=== PATIENT | female | born 1980 | race Caucasian/White ===

== ENCOUNTER 2017-01-13 03:56 | Inpatient (IN) ==
[2017-01-13] MEDS ORDERED: Ondansetron 4 MG/2 ML VIAL IVP PRN (04:27)
[2017-01-13] MEDS ORDERED: Famotidine 20 MG/2 ML VIAL IVP PRN (04:27)
[2017-01-13] MEDS ORDERED: Metoclopramide 10 MG/2 ML VIAL IVP PRN (04:27)
[2017-01-13] MEDS ORDERED: Naloxone 0.4 MG/ML INJ IVP PRN (04:27)
[2017-01-13] MEDS ORDERED: Penicillin G Potassium 5,000,000 UNIT in D5% in Water (Mini-Bag+) 100 ML IVPB ONE (04:30)
[2017-01-13] MEDS ORDERED: *HR* Nalbuphine 20 MG/ML AMPUL IVP PRN (04:31)
[2017-01-13] MEDS ORDERED: Ringers Solution, Lactated 1,000 ML ONE (04:35)
[2017-01-13 04:36] LABS: Basophils % 0.3 %; Eosinophils # 0.2 K/mcL (0.0-0.6); Eosinophils % 1.3 %; Hematocrit 37.1 % (35.3-44.9); Hemoglobin 12.4 g/dL (11.5-15.4); Immature Granulocytes % 0.8 % (0-4); Lymphocytes # 3.3 K/mcL (0.6-4.6); Lymphocytes % 25.2 %; Mean Corpuscular HGB Conc 33.4 g/dL (31.6-35.5); Mean Corpuscular Hemoglobin 29.6 pg (28.0-33.3); Mean Corpuscular Volume 88.5 fL (83.0-100.0); Mean Platelet Volume 11.6 fL (9.4-12.4); Monocytes # 0.9 K/mcL (0.0-1.3); Monocytes % 7.1 %; Neutrophils # 8.6 K/mcL (1.6-8.9); Platelet Count 253 K/mcL (140-400); Red Blood Count 4.19 M/mcL (3.82-4.97); Red Cell Distribution Width 13.7 % (11.5-14.5); Segmented Neutrophils % 65.3 %
[2017-01-13 04:45] LABS: Amphetamine Screen,Urine Negative ng/mL (Cutoff=1000); Barbiturate Screen,Urine Negative ng/mL (Cutoff=200); Benzodiazepines Screen,Urine Negative ng/mL (Cutoff=200); Cannabinoid Screen,Urine Negative ng/mL (Cutoff = 50); Cocaine Screen,Urine Negative ng/mL (Cutoff= 300); Opiate Screen,Urine Negative ng/mL (Cutoff=300); Phencyclidine Screen,Urine Negative ng/mL (Cutoff=25)
[2017-01-13] MEDS ORDERED: Oxytocin 20 units/ LR 1000 mL 20 UNIT/1,000 ML BAG IVC SCH ×2 (04:45→15:45)
[2017-01-13] MEDS: Ringers Solution, Lactated 1,000 ML IVC SCH ×2 (04:49→10:56)
[2017-01-13] MEDS ORDERED: miSOPROStol 25 MCG TABLET VG SCH (05:00)
[2017-01-13] MEDS: Penicillin G Potassium 2,500,000 UNIT in D5% in Water 100 ML IVPB SCH ×2 (09:13→13:03)
--- NOTE | 2017-01-13 10:19 | OB/GYN History & Physical ---
Date of Encounter: 01/13/17 Time of Encounter: 10:18 Assessment and Plan (1) Elective induction of labor planned Current visit: Yes Status: Acute PCN for GBS ppx started, cytotec 25mcg given for cervical ripening, if favorable after 1st or 2nd dose, will start pitocin, aniticipate FHT CAT 1 History of Present Illness HPI: Ms. Coley is a 36 year old female @ 39+ weeks who presented to L&D for IOL, she does not report LOF, VB or ctxs, she is GBS + Past Med Surg Social Fam HX - Past Medical History Medical history: asthma, hepatitis Psychiatric history: no psych history - Past Surgical History Surgical History: other - Social History Smoking Status: Current every day smoker Packs per day: <1/4 Smokeless Tobacco Status: No Alcohol use: none Drug use: none - Family History Mother Adopted: No Living Status: Still Living Hx Family Cardiac Disorders: No Hx Family Respiratory Disorders: No Hx Family Cancer: No Hx Family GI Disorders: No Hx Family Genitourinary Disorders: No Hx Family Endocrine Disorder: Yes (dm) Hx Family Musculoskeletal Disorders: No Hx Family Neuromuscular Disorders: No Hx Family Neurologic Disorders: No Hx Family HEENT Disorders: No Hx Family Autoimmune Disorders: No Hx Family Reproductive Disorders: No Hx Family Psychosocial Disorders: No Hx Family Medical Disorders: No Obstetrical History - Pregnancies : 4 Para: 2 Term: 2 : 0 Ab's: 1 Livin Medications and Allergies Famotidine [Pepcid] 20 mg PO DAILY 01/13/17 [History] Vit/Iron Fumarate/FA [ Tablet] 1 tab PO DAILY 01/13/17 [History ] 3 Allergy/AdvReac Type Severity Reaction Status Date / Time pseudoephedrine Allergy Hypertensio Verified 05/30/16 19:18 [From Sudafed] n Exam - Constitutional Constitutional: well developed - HEENT HEENT: PERRL - Neck Neck exam: full ROM - Lungs Respiratory exam: CTAB - Cardiovascular Cardiovascular exam: RRR - Abdomen Abdomen: Present: gravid - Cervix Dilation: 1 Effacement: 60 Results Result Diagrams: 01/13/17 04:25 Abnormal lab results WBC 13.2 K/mcL (4.3-11.1) H 01/13/17 04:25 All other labs normal.
--- NOTE | 2017-01-13 13:50 | OB Labor Progress Note ---
Date of Encounter: 01/13/17 Time of Encounter: 13:47 Labor Progress Note - Subjective Subjective: patient doing well - Vital Signs Vital Signs: VSS - Cervix Cervix: 2cm/75 - Heart Tones Heart Tones: FHT CAT 1 - Plan Plan: ok for epidural, pitocin @ 1, keep increasing, anticipate
[2017-01-13] MEDS ORDERED: *HR* FentaNYL (PF) 100 MCG/2 ML VIAL ONE (15:16)
[2017-01-13] MEDS ORDERED: Bupivacaine-MPF 0.25% 10 ML VIAL ONE ×2 (15:16→15:18)
[2017-01-13] MEDS ORDERED: Epidural Premix (fent/bupiv) 0 ML EP ONE (15:17)
--- NOTE | 2017-01-13 15:33 | OB/GYN Procedure Note ---
Delivery - Delivery Date: 01/13/17 Provider: Kayley Mai Intrapartum events: none Delivery induction: oxytocin, misoprostol Delivery monitor: external FHT Anesthesia: none Estimated Blood Loss: 100 - Repair Episiotomy: none Laceration Description: Periurethral - Complications Delivery complications: none - Disposition Mom disposition: stable in LDR [place] disposition: stable in LDR - Comments Comments: 36 y/o now delivered a viable male @ 1512 hrs, weighing 3125g ( 6lbs 14oz), APGARs 9/9. Infant was delivered JESUS with a loose nuchal cord x 1. Placenta was delivered @ 1517hrs, EBL 100cc, right hemostatic periurethral laceration noted. Mother and infant doing very well.
[2017-01-13] MEDS ORDERED: Measles/Mumps/Rubella Vacc 0.5 ML VIAL SQ PRN (15:34)
[2017-01-13] MEDS: Ibuprofen 600 MG TABLET PO PRN (16:55)
[2017-01-14] MEDS: Ibuprofen 600 MG TABLET PO PRN (03:51)
[2017-01-14 05:00] LABS: Basophils % 0.2 %; Eosinophils # 0.2 K/mcL (0.0-0.6); Eosinophils % 1.1 %; Hematocrit 35.9 % (35.3-44.9); Hemoglobin 11.9 g/dL (11.5-15.4); Immature Granulocytes % 0.5 % (0-4); Lymphocytes # 3.2 K/mcL (0.6-4.6); Lymphocytes % 21.1 %; Mean Corpuscular HGB Conc 33.1 g/dL (31.6-35.5); Mean Corpuscular Hemoglobin 29.4 pg (28.0-33.3); Mean Corpuscular Volume 88.6 fL (83.0-100.0); Mean Platelet Volume 11.8 fL (9.4-12.4); Monocytes # 0.9 K/mcL (0.0-1.3); Monocytes % 5.9 %; Neutrophils # 10.7 K/mcL (1.6-8.9); Platelet Count 249 K/mcL (140-400); Red Blood Count 4.05 M/mcL (3.82-4.97); Red Cell Distribution Width 13.7 % (11.5-14.5); Segmented Neutrophils % 71.2 %
[2017-01-14 08:10] VITALS: BP 106/63
[2017-01-14] MEDS ORDERED: Prenatal Vit/FA 1 EACH TABLET PO SCH (09:00)
--- NOTE | 2017-01-14 09:22 | Discharge Summary ---
Date of Encounter: 01/14/17 Time of Encounter: 09:19 - Discharge Diagnosis (1) Status post vaginal delivery Priority: Primary Status: Acute Comments: Routine PP care - Discharge Medications Prescriptions: Ibuprofen [Motrin] 600 mg PO Q6HR PRN #30 tablet PRN Reason: Cramping Home Medications: Famotidine [Pepcid] 20 mg PO DAILY 01/13/17 [History] Vit/Iron Fumarate/FA [ Tablet] 1 tab PO DAILY 01/13/17 [History ] Ibuprofen [Motrin] 600 mg PO Q6HR PRN #30 tablet 01/14/17 [Rx] Allergies/Adverse Reactions: 3 Allergy/AdvReac Type Severity Reaction Status Date / Time pseudoephedrine Allergy Hypertensio Verified 05/30/16 19:18 [From Jadyn] n Data Procedures and tests throughout hospitalization: Laboratory Tests 01/13/17 01/13/17 01/14/17 04:25 04:25 04:39 WBC 13.2 H 15.0 H RBC 4.19 4.05 Hgb 12.4 11.9 Hct 37.1 35.9 MCV 88.5 88.6 MCH 29.6 29.4 MCHC 33.4 33.1 RDW 13.7 13.7 Plt Count 253 249 MPV 11.6 11.8 Immature Gran % 0.8 0.5 Seg Neutrophils % 65.3 71.2 Lymphocytes % 25.2 21.1 Monocytes % 7.1 5.9 Eosinophils % 1.3 1.1 Basophils % 0.3 0.2 Neutrophils # 8.6 10.7 H Lymphocytes # 3.3 3.2 Monocytes # 0.9 0.9 Eosinophils # 0.2 0.2 Basophils # 0.0 0.0 Urine Opiates Screen Negative Ur Barbiturates Screen Negative Ur Phencyclidine Scrn Negative Ur Amphetamines Screen Negative U Benzodiazepines Scrn Negative Urine Cocaine Screen Negative U Marijuana (THC) Screen Negative Labs on day of discharge: Labs from last 24 hours 01/14/17 04:39 WBC 15.0 H RBC 4.05 Hgb 11.9 Hct 35.9 MCV 88.6 MCH 29.4 MCHC 33.1 RDW 13.7 Plt Count 249 MPV 11.8 Immature Gran % 0.5 Seg Neutrophils % 71.2 Lymphocytes % 21.1 Monocytes % 5.9 Eosinophils % 1.1 Basophils % 0.2 Neutrophils # 10.7 H Lymphocytes # 3.2 Monocytes # 0.9 Eosinophils # 0.2 Basophils # 0.0 Date of admission: 01/13/17 03:56 Primary care physician: PCP NONE Consults: 01/13/17 04:29 Consult to Environmental Compliance Manager (W&C) [CONS] Routine Reason For Exam: Reason for SW Consult: patient does not have custody of other children and has history of IV drug abuse. Discharging clinician: Yuliana Bautista Anticipated date of discharge: 01/14/17 - Patient Status Disposition: Home, Self-Care Condition: Good Functional capacity at discharge: independent ambulation Overall status at discharge: patient is progressing back to baseline - Discharge Instructions Follow Up With: Kayley Mai MD [Partnered Physician] - - Diet and Activity Activity: increase activity as tolerated Diet: advance to your usual diet Hospital Course Reason for admission: induction of labor Delivery: Episiotomy: none Laceration: other complications: none Discharge diagnosis: IUP at term delivered baby: male Time Attestation: Total time spent providing and/or coordinating discharge services: Time Spent: Less than 30 minutes Exam - Constitutional Vitals: Temp Pulse Resp BP Pulse Ox 98.4 F 60 16 106/63 97 01/14/17 07:20 01/14/17 07:20 01/14/17 07:20 01/14/17 07:20 01/14/17 07:20 General appearance IM: A&O X 3, no acute distress - Respiratory Respiratory exam: Present: CTAB. Absent: respiratory distress - Cardiovascular Cardiovascular exam IM: Present: RRR. Absent: irregular rhythm - GI/Abdominal GI/Abdominal exam IM: normal bowel sounds - Rectal Rectal exam: deferred - Uterine Tone: Firm - Extremities Exam Extremities exam IM: Absent: calf tenderness
== END 2017-01-14 10:56 | disposition home or self-care (01) | DRG 560 ==
LOC: 1NENULAB 03:56 → 1NENUOBS 18:00
PROVIDERS: ADMIT Student in an Organized Health Care Education/Training Program; ATTEND Student in an Organized Health Care Education/Training Program